=== PATIENT | female | born 2000 | race Two or more races ===

== ENCOUNTER 2020-01-08 05:45 | Day surgery (SDC) | payer OTHER ==
[~2020-01-08 05:45] MED LIST: ALAVERT PO; NASAL MIST126 ML; ZYRTEC10 M3 PO
== END 2020-01-08 12:11 | disposition home or self-care (01) ==
LOC: CIR.AMB 05:45
PROVIDERS: ATTEND Otolaryngology Otology & Neurotology
DX: H61.811 Exostosis of right external canal (principal); Z20.828 Contact with and (suspected) exposure to other viral communicable diseases